=== PATIENT | male | born 1980 | race African-American/Black ===

== ENCOUNTER 2019-09-10 11:24 | Emergency (ER) | payer SELFPAY ==
[~2019-09-10] VITALS: Ht 170.2 cm; Wt 122.5 kg
--- NOTE | 2019-09-10 11:41 | PHYS DOC ---
Adult General Chief Complaint Chief Complaint: right hand pain HPI HPI 39-year-old male presents with right hand trauma. The patient's grandmother recently and he has been emotional. He punched a wall about 45 has prior to arrival. He has a skin tear that is bleeding and it appears to have deformity of the third finger. It is quite painful. The patient is concerned about fracture. He denies any other injuries or complaints. Review of Systems Review of Systems Constitutional: Denies fever or chills [] Eyes: Denies change in visual acuity, redness, or eye pain [] HENT: Denies nasal congestion or sore throat [] Respiratory: Denies cough or shortness of breath [] Cardiovascular: No additional information not addressed in HPI [] GI: Denies abdominal pain, nausea, vomiting, bloody stools or diarrhea [] : Denies dysuria or hematuria [] Musculoskeletal: Right hand pain[] Integument: Denies rash or skin lesions [] Neurologic: Denies headache, focal weakness or sensory changes [] Endocrine: Denies polyuria or polydipsia [] All other systems were reviewed and found to be within normal limits, except as documented in this note. Physical Exam Physical Exam Constitutional: Well developed, well nourished, no acute distress, non-toxic appearance. [] HENT: Normocephalic, atraumatic, bilateral external ears normal, oropharynx moist, no oral exudates, nose normal. [] Eyes: PERRLA, EOMI, conjunctiva normal, no discharge. [] Neck: Normal range of motion, no tenderness, supple, no stridor. [] Cardiovascular:Heart rate regular rhythm, no murmur [] Lungs & Thorax: Bilateral breath sounds clear to auscultation [] Abdomen: Bowel sounds normal, soft, no tenderness, no masses, no pulsatile masses. [] Skin: Warm, dry, no erythema, no rash. [] Back: No tenderness, no CVA tenderness. [] Extremities: Right hand with small 3 mm area of bleeding over the third metacarpophalangeal joint. Swelling and possible deformity in the same area.[] Neurologic: Alert and oriented X 3, normal motor function, normal sensory function, no focal deficits noted. [] Psychologic: Affect normal, judgement normal, mood normal. [] EKG EKG [] Radiology/Procedures Radiology/Procedures [] Impressions: HAND RIGHT 3V DATE: 09/10/2019 11:34 AM INDICATION: Pain after punching a wall COMPARISON: None. FINDINGS/ IMPRESSION: Acute fracture of the third metacarpal head with extension into the MCP joint, impaction, and mild volar displacement of the metacarpal head fracture fragment. Electronically signed by: Renea Richardson MD (09/10/2019 12:13 PM) [id number] DICTATED AND SIGNED BY: RENEA RICHARDSON MD DATE: 09/10/19 1213 CC: JALEESA KUMARI DO; PCP,NO ~ Course & Med Decision Making Course & Med Decision Making Pertinent Labs and Imaging studies reviewed. (See chart for details) The patient's tetanus is out of date. We will give him an update in the ED. The patient has a fracture of the right distal metacarpal that doesn't involve the joint. He lives in [place]. We will splint the patient for now and he will follow- up with orthopedics when he returns home later this week. He is stable for discharge at this time. [] Dragon Disclaimer Dragon Disclaimer This electronic medical record was generated, in whole or in part, using a voice recognition dictation system. Departure Departure: Impression: Primary Impression: Fracture of third metacarpal bone of right hand Disposition: 01 HOME, SELF-CARE Condition: STABLE Referrals: PCP,DIMITRI (PCP) Patient Instructions: Hand Fracture, Metacarpals, [id number] Scripts Hydrocodone Bit/Acetaminophen (NORCO 5-325 TABLET) 1 Each Tablet 1 TAB PO PRN Q6HRS PRN for PAIN, #10 TAB 0 Refills Prov: JALEESA KUMARI DO 09/10/19 Problem Qualifiers Primary Impression: Fracture of third metacarpal bone of right hand Encounter type: initial encounter Fracture type: open Metacarpal location: neck Fracture alignment: displaced Qualified Codes: S62.332B - Displaced fracture of neck of third metacarpal bone, right hand, initial encounter for open fracture JALEESA KUMARI DO Sep 10, 2019 11:41
[2019-09-10] MEDS ORDERED: ONDANSETRON PF 4 MG/2 ML VIAL. IVP ONE (11:45)
[2019-09-10] MEDS ORDERED: DIPHTH,PERTUSS(ACELL),TET TOX 0.5 ML DISP.SYRIN. VAX IM ONE (11:45)
[2019-09-10] MEDS ORDERED: MORPHINE SULFATE 2 MG/ML DISP.SYRIN. IV ONE (11:45)
[2019-09-10] MEDS ORDERED: HYDROcodone/APAP 5/325MG 1 TAB TABLET PO ONE (12:00)
--- NOTE | 2019-09-10 12:16 | RAD ---
HAND RIGHT 3V DATE: 09/10/2019 11:34 AM INDICATION: Pain after punching a wall COMPARISON: None. FINDINGS/ IMPRESSION: Acute fracture of the third metacarpal head with extension into the MCP joint, impaction, and mild volar displacement of the metacarpal head fracture fragment. Electronically signed by: To Kapoor MD (09/10/2019 12:13 PM) [id number]
[2019-09-10] MEDS ORDERED: HYDR-3165 PO (12:41)
[2019-09-10 12:50] VITALS: BP 126/76
== END 2019-09-10 13:00 | disposition home or self-care (01) ==
LOC: ER 11:24
DX: S62.332B Displaced fracture of neck of third metacarpal bone, right hand, initial encounter for open fracture (principal); W22.01XA Walked into wall, initial encounter; Y93.89 Activity, other specified; Y92.89 Other specified places as the place of occurrence of the external cause; Y99.8 Other external cause status
CPT/HCPCS: 29125; 73130; 90471; 90715; 99284